=== PATIENT | male | born 1950 | race Caucasian/White ===

== ENCOUNTER 2019-09-29 00:37 | Day surgery (SDC) | payer MEDICARE, MEDICAID, SELFPAY ==
[2019-09-25 12:13] VITALS: BMI 34.9
[2019-09-29 09:30] VITALS: BP 141/79; PULSE 70; RESP 20; TEMP 36.4; O2SAT 96
[2019-09-29] MEDS: LACTATED RINGERS 1,000 ML 150 ML IV CONT (09:45)
--- NOTE | 2019-09-29 09:53 | WPDANESEPPF ---
Anes - Initial Pre Proc Eval Procedure: Operation Date: 09/29/19 10:30 Proposed Procedures p Esophagogastroduodenoscopy - Juan Mendoza MD Date/Time: 09/29/19 09:53 Surgeon: Juan Mendoza MD Pre Op Diagnosis: Non cardiac Chest Pain, GERD, Patient Data Age: 69 Gender: M Height: 5 ft 11 in Weight: 111.9 kg Last Vital Signs Temp 36.4 C 09/29/19 09:30 Pulse 70 09/29/19 09:30 Resp 20 09/29/19 09:30 BP 141/79 H 09/29/19 09:30 Pulse Ox 96 09/29/19 09:30 Allergies Allergy/AdvReac Type Severity Reaction Status Date / Time No Known Allergies Allergy Verified 09/29/19 09:35 Home Medications Medication Instructions Recorded Confirmed Type dexlansoprazole 60 mg 60 mg PO DAILY #30 cap 07/08/19 09/25/19 Rx capsule,biphase delayed release hydrocodone 10 mg-acetaminophen See Rx Instructions .ROUTE 08/06/19 09/25/19 History 325 mg tablet .COMPLEX PRN metoprolol succinate 100 mg 200 mg PO DAILY 08/06/19 09/25/19 History tablet,extended release 24 hr ticagrelor 90 mg tablet See Rx Instructions .ROUTE .COMPLEX 08/06/19 09/25/19 History tamsulosin 0.4 mg capsule 0.4 mg PO BID #60 cap 08/07/19 09/25/19 Rx aspirin [Aspir-81] 81 mg PO DAILY 09/18/19 09/25/19 History losartan 50 mg PO DAILY 09/18/19 History Patient hx anesthesia problems: none Family hx anesthesia problems: none PMFSH Past Medical History Medical History Belching CAD (coronary artery disease) GERD (gastroesophageal reflux disease) HLD (hyperlipidemia) Non-cardiac chest pain Family History Family History Mother Acute myocardial infarction Sibling Acute myocardial infarction Sibling Acute myocardial infarction Sibling Acute myocardial infarction Social History Social History Smoking status: Never smoker Anes - Eval Final PreProcedure Day of Procedure 02/04/20 09:53 Patient weight: obese Heart: regular rate and rhythm Lungs: clear to auscultation Airway: Mallampati scale class II Neurological: alert and oriented Last oral intake: >/= 8 hours ASA classification: III Emergent: no Anesthetic plan: proceed Anesthesia type and monitoring: general GIVS and standard monitoring Informed Consent: The patient's anesthetic plan and its attendant risks and benefits were discussed with the patient/family/POA. Questions were solicited and answers provided to the satisfaction of the patient/family/POA.
--- NOTE | 2019-09-29 10:07 | WPDHPUPDATE1 ---
History and Physical Update Update Date/Time: 09/29/19 10:07 History and Physical has been reviewed, including an updated exam of the patient. There are NO changes in the patient's condition. Risks, benefits, and alternatives have been discussed and questions answered. Patient agrees to proceed with procedure.
[2019-09-29 10:25] VITALS: BP 126/68; PULSE 69; RESP 21; O2SAT 95
[2019-09-29 10:35] VITALS: BP 126/64; PULSE 69; RESP 18; O2SAT 95
[2019-09-29 10:45] VITALS: BP 136/73; PULSE 65; RESP 21; O2SAT 96
== END 2019-09-29 11:07 | disposition home or self-care (01) ==
PROVIDERS: PCP Emergency Medicine; Visit Provider Internal Medicine Gastroenterology
PROC: 0DJ08ZZ Inspection of Upper Intestinal Tract, Via Natural or Artificial Opening Endoscopic (ICD-10-PCS; CPT 43235; principal; 2019-09-29 10:30)
DX: K29.50 Unspecified chronic gastritis without bleeding (principal); K31.7 Polyp of stomach and duodenum; E78.5 Hyperlipidemia, unspecified; I25.10 Atherosclerotic heart disease of native coronary artery without angina pectoris; K21.9 Gastro-esophageal reflux disease without esophagitis; Z79.82 Long term (current) use of aspirin; E66.9 Obesity, unspecified; Z68.34 Body mass index [BMI] 34.0-34.9, adult
CPT/HCPCS: 43239; 88305; 88342; J2704; J7120

== ENCOUNTER 2019-11-04 08:30 | Outpatient (RCR) | payer MEDICARE, MEDICAID, SELFPAY ==
[2019-09-18 11:45] VITALS: BP 162/84; PULSE 77; RESP 14; O2SAT 98
--- NOTE | 2019-10-07 18:42 | PCCPR ---
Spoke with Miller this evening-states he plans to start Saturday the . Had appts and other things come up this week.
--- NOTE | 2019-10-19 08:53 | PCCPR ---
ABSENT r/t rainy weather
--- NOTE | 2019-11-18 09:26 | PCCPR ---
Program is temporarily suspended due to COVID outbreak.
--- NOTE | 2019-11-25 11:20 | PCCPR ---
Called patient in regards to the temporary closure of our department continuing until at least December 23. Patient states he has been having horrible back pain and hasnt been able to do much activity. States he does try to get out of the house for some activity during the day. Will mail patient a home based exercise packet. Will continue to follow weekly.
--- NOTE | 2019-12-02 10:03 | PCCPR ---
Called Miller today for weekly check and he did not answer the phone, unable to leave voice mail because mailbox has not been set up.
--- NOTE | 2019-12-08 11:30 | PCCPR ---
Spoke with Miller today states he has been trying to walk but it is killing him! I asked him to explain. He described that walking aggravates pain he has in both of his hips so bad he can hardly stand it. States since he moved from [place] he has had terrible pain in his hips that keeps him from sleeping at night and wakes him up when he does get to sleep. Attempted to find out who was managing his pain medication. He does see the pain management team he was once on the hydrocodone 3 times per day and that took care of his pain and now on 1.5 pills per day. encouraged him to call them and tell them what he told me. States they have tried muscle relaxers that just make him sleepy and do not take care of the pain also that other medications have been ordered however none are covered by his insurance. Explained maybe not to walk so long to stop before it becomes too painful until they come up with a better pain management plan. Also let him know we would still call him weekly to check on him until we know more about our dept reopening.
--- NOTE | 2019-12-16 13:29 | PCCPR ---
Weekly update call-Complains of back pain that is limiting his activity. Has an appt with MD this week.
--- NOTE | 2019-12-23 13:01 | PCCPR ---
Weekly update call-informed patient of continued closure through the month of December due to the extension of the jail [facility] order. No questions at this time.
--- NOTE | 2020-01-07 12:51 | PCCPR ---
Starting Bi-Weekly Calls. Spoke with patient. No questions or concerns at this time.
--- NOTE | 2020-01-21 13:46 | PCCPR ---
Spoke with Miller today today. Miller not able to exercise due to severe back pain. He is having test done at this time to determine if he would be a canidate for back surgery.
--- NOTE | 2020-03-10 10:14 | PCCPR ---
Addendum entered by Dana Kelsey RN 03/21/20 15:01: Spoke with Miller states his wound is all healed. He plans to try to get a release from the [facility] tomorrow if not told him if wound was healed without active infection he could return. He hopes to resume on Saturday. Original Note: Spoke with Miller states his leg is improving. He received a shot at [facility] care and has been doing his own drsg changes. Explained we will need a release for him to return to Cardiac rehab, and verbalized understanding.
--- NOTE | 2020-03-23 11:08 | PCCPR ---
Addendum entered by Tanya Velazco RN 03/24/20 09:23: Spoke with Miller today, he is on hold at this time until he has recovered from his illness. Plans to attend 1800 class when able to return. Original Note: On hold-Miller called and states he now has a fever. Will place him on hold until we hear further information.
--- NOTE | 2020-04-01 13:50 | PCCPR ---
Miller did not return as he said he would. Tried phone numbers of him and his listed on chart and both were disconnected. Miller discharged from program.
== END 2019-11-04 23:59 | disposition home or self-care (01) ==
LOC: ANHCPREHAB 08:30
PROVIDERS: PCP Emergency Medicine; Visit Provider Internal Medicine
DX: Z95.5 Presence of coronary angioplasty implant and graft (principal)
CPT/HCPCS: 93798

== ENCOUNTER 2020-02-24 14:58 | Emergency (ER) | payer MEDICARE, MEDICAID, SELFPAY ==
--- NOTE | 2020-02-24 15:04 | ED.GENADULT ---
HPI - General Adult General Chief complaint: Wound/Laceration Stated complaint: laceration Time Seen by Provider: 02/24/20 15:04 Source: patient Mode of arrival: ambulatory Limitations: no limitations History of Present Illness HPI narrative: 69-year-old male patient presents to the [facility] with complaints of a laceration to the left leg about 7 or 8 days ago. Patient states that he cut himself with a wire saw. Patient unknown of what his last tetanus shot was. Patient states he was not seen at the time of the injury because he has not from around here. Patient states he is here today because he is concerned that it is infected. Patient states he has had increase in pain as well as some yellow discharge coming from the wound. Patient states he had a little some chills yesterday but did not take his temperature. Patient states that the leg hurts when he walks but does feel better when he elevates it. Denies any significant swelling to the left leg. Related Data Home Medications Medication Instructions Recorded Confirmed hydrocodone 10 mg-acetaminophen See Rx Instructions .ROUTE 08/06/19 09/29/19 325 mg tablet .COMPLEX PRN aspirin [Aspir-81] 81 mg PO DAILY 09/18/19 09/29/19 losartan 50 mg PO DAILY 09/18/19 metoprolol succinate 200 mg 200 mg PO DAILY 11/05/19 tablet,extended release 24 hr desoximetasone TOPICAL 02/24/20 methocarbamol mg 02/24/20 Allergies Allergy/AdvReac Type Severity Reaction Status Date / Time No Known Allergies Allergy Verified 09/29/19 09:35 Review of Systems Review of Systems: Narrative: CONSTITUTIONAL: Denies fever, chills, or sweats. EYES: Denies visual changes, redness, or discharge. ENT: Denies rhinorrhea, congestion, sore throat, or otalgia. CARDIOVASCULAR: Denies chest pain, palpitations, or edema. RESPIRATORY: Denies cough or dyspnea. GASTROINTESTINAL: Denies abdominal pain, nausea, vomiting, or diarrhea. GENITOURINARY: Denies dysuria or hematuria. SKIN: Denies rash or itching. Positive laceration to left lower leg x7 or 8 days ago with concerns of infection MUSCULOSKELETAL: Denies back pain, joint pain, or myalgia. NEUROLOGIC: Denies headache, numbness, or weakness. PSYCHIATRIC: Denies anxiety or depression. [facility] Past Medical History Medical History Belching CAD (coronary artery disease) GERD (gastroesophageal reflux disease) HLD (hyperlipidemia) Non-cardiac chest pain Family History Family History Mother Acute myocardial infarction Sibling Acute myocardial infarction Sibling Acute myocardial infarction Sibling Acute myocardial infarction Social History Social History Smoking status: Current every day smoker Comments At the time of my signature I agree with nursing past medical history, surgical, social, and family history. There is no relevant family history pertinent to the presenting complaint. Exam Narrative: Exam Narrative: GENERAL: Well-appearing, well-nourished, and in no acute distress. HEAD: Normocephalic, atraumatic. EYES: PERRLA and EOMI. ENT: Nares clear, no rhinorrhea or epistaxis. Mucous membranes moist. NECK: Supple. No lymphadenopathy CHEST: Clear to auscultation. No respiratory distress. HEART: Regular rate and rhythm. No murmur heard. Normal peripheral pulses. ABDOMEN: Soft, nontender, nondistended, normal active bowel sounds. EXTREMITIES: Normal range of motion. No edema. SKIN: Warm, dry, no rash. Patient has approximately 6.5 cm wounds to the left medial lower extremity on the calf area with yellow discharge present. The surrounding erythema of the wound measures approximately 8.5 cm. No obvious swelling. DP pulses to the left foot are 2+. It is tender to on palpation to the area. No pain with movement to the knee or ankle. NEURO: No focal deficits. Alert and oriented
[2020-02-24 15:10] VITALS: BP 169/75; PULSE 75; RESP 16; TEMP 37.2; O2SAT 98
[2020-02-24] MEDS: TETANUS,DIPHTHERIA,AC PERTUSSIS ADULT (0.5 ML) BOOSTRIX IM (15:37)
== END 2020-02-24 15:58 | disposition home or self-care (01) ==
PROVIDERS: Emergency Provider Nurse Practitioner Family
DX: S81.812A Laceration without foreign body, left lower leg, initial encounter (principal); I25.10 Atherosclerotic heart disease of native coronary artery without angina pectoris; E78.5 Hyperlipidemia, unspecified; Z23 Encounter for immunization; I10 Essential (primary) hypertension; K21.9 Gastro-esophageal reflux disease without esophagitis; Z95.5 Presence of coronary angioplasty implant and graft; Z95.1 Presence of aortocoronary bypass graft; F17.200 Nicotine dependence, unspecified, uncomplicated; Z79.82 Long term (current) use of aspirin; W27.0XXA Contact with workbench tool, initial encounter
CPT/HCPCS: 90471; 90715; 99213; G0463

== ENCOUNTER 2020-03-28 15:24 | Outpatient (RCR) | payer MEDICARE, MEDICAID, SELFPAY | END 2020-06-26 23:59 | disposition home or self-care (01) | LOC: ANHHMC 15:24 | PROVIDERS: Visit Provider Internal Medicine | DX: Z95.5 Presence of coronary angioplasty implant and graft (principal) | CPT/HCPCS: 99199 ==